=== PATIENT | female | born 1975 | race Caucasian/White ===

== ENCOUNTER 2017-02-26 14:42 | Emergency (ER) | payer SELFPAY ==
[~2017-02-26] VITALS: Ht 170.2 cm; Wt 97.5 kg
[~2017-02-26 14:42] MED LIST: DOXY100C2 PO; HYDR1TAB PO; NAPR-243 PO; PRD20T PO
--- OUTSIDE RECORDS SUMMARY | 2017-02-26 14:49 | XMS REPORT ---
Author Author CECILIA LLANES [facility] eClinicalWorks Address Unknown Phone Unavailable Care Team Providers Care Cycle Counter Name Role Phone CECILIA LLANES CP Unavailable Allergies No Known Allergies Problems Problem Type Condition ICD-9 Code Onset Dates Condition Status Assessment Lumbago 724.2 Active Problem Decreased urination 788.5 Active Problem Increased mucus in stool 792.1 Active Problem Routine adult health maintenance V70.0 Active Assessment Decreased urination 788.5 Active Assessment Increased mucus in stool 792.1 Active Problem Lumbago 724.2 Active Assessment Routine adult health maintenance V70.0 Active Medications No Known Medications Procedures Procedure Coding System Code Date COMPREHEN METABOLIC PANEL CPT-4 56669 Nov 24, 2014 ASSAY THYROID STIM HORMONE CPT-4 51266 Nov 24, 2014 COMPLETE CBC W/AUTO DIFF WBC CPT-4 81422 Nov 24, 2014 VENIPUNCT, ROUTINE* CPT-4 72226 Nov 24, 2014 URINALYSIS, AUTO, W/O SCOPE CPT-4 91849 Nov 24, 2014 FECES CULTURE, BACTERIA CPT-4 74157 Nov 24, 2014 Results Name Result Date Reference Range Unit Abnormality Flag UA W/CULTURE IF INDICATED (IN HOUSE) CULTURE, STOOL Summary Purpose eClinicalWorks Submission
--- OUTSIDE RECORDS SUMMARY | 2017-02-26 14:49 | XMS REPORT ---
Author Author CECILIA LLANES Organization eClinicalWorks Address Unknown Phone Unavailable Care Team Providers Care Auto Dismantler Name Role Phone CECILIA LLANES CP Unavailable Allergies No Known Allergies Problems Problem Type Condition ICD-9 Code Onset Dates Condition Status Problem Decreased urination 788.5 Active Problem Increased mucus in stool 792.1 Active Problem Routine adult health maintenance V70.0 Active Problem Lumbago 724.2 Active Medications Medication Code System Code Instructions Start Date End Date Status Dosage Diclofenac Sodium [facility] [address]-02 50 MG Orally Twice a day Nov 29, 2014 1 tablet Cyclobenzaprine HCl [facility] [address]-04 5 MG Orally at bedtime Nov 29, 2014 1 tablet Results No Known Results Summary Purpose eClinicalWorks Submission
--- NOTE | 2017-02-26 15:16 | ED Lower Extremity ---
General Chief Complaint: Lower Extremity Stated Complaint: PAIN IN BOTH LEGS,LEFT WORSE Nursing Triage Note: AMB TO ROOM REPORTS MISSED BOTTEM STEP AND TWISTED R ANKLE,AND HIT L CHIN ON STEP. SWELLING TO R ANKLE 3 DAYS AGO Nursing Sepsis Screen: No Definite Risk Source: patient Exam Limitations: no limitations History of Present Illness Time seen by provider: 15:15 Initial Comments Patient missed the last step on her basement stairs 3 days ago. She subsequently fell. She has persistent right ankle swelling and left ankle pain without swelling. She is ambulatory to room 8 Onset: other Severity: moderate Pain/Injury Location: bilateral ankle Method of Injury: fell Modifying Factors: Worse With Movement Allergies and Home Medications Allergies Coded Allergies: Penicillins (Unverified Allergy, Severe, THROAT CLOSES UP, 08/06/10) Home Medications Hydrocodone/Acetaminophen 1 Each Tablet, 1 EACH PO Q4H PRN for PAIN-SEVERE TO BREAKTHROUGH, #30 Prescribed by: WILLIAM VITAL on 02/26/17 1536 Naproxen 500 Mg Tablet, 1 EACH PO BID PRN, #30 Prescribed by: MUNA CLEMENS on 03/14/12 1654 Constitutional: see HPI EENTM: see HPI Respiratory: no symptoms reported Cardiovascular: no symptoms reported Genitourinary: no symptoms reported Musculoskeletal: see HPI Skin: no symptoms reported Psychiatric/Neurological: No Symptoms Reported Past Ceeflod-Rizece-Qlpqow Hx Patient Social History Alcohol Use: Denies Use Recreational Drug Use: No Smoking Status: Current Everyday Smoker Recent Foreign Travel: No Contact w/Someone Who Travel: No Recent Infectious Disease Expo: No Surgeries History of Surgeries: Yes Surgeries: Tubal Ligation Respiratory History of Respiratory Disorde: No Cardiovascular History of Cardiac Disorders: No Neurological History of Neurological Disord: No Musculoskeletal History of Musculoskeletal Dis: No Psychosocial History of Psychiatric Problem: No Integumentary History of Skin or Integumenta: No Physical Exam Vital Signs Vital Sign - Last 12Hours 02/26/17 14:48 Temp 98.0 Pulse 100 Resp 18 B/P (MAP) 142/89 Pulse Ox 98 O2 Delivery Room Air Capillary Refill : Less Than 3 Seconds General Appearance: WD/WN, no apparent distress HEENT: PERRL/EOMI, normal ENT inspection Neck: non-tender, full range of motion Respiratory: normal breath sounds, no respiratory distress, no accessory muscle use Hips: bilateral hip non-tender, bilateral hip normal inspection, bilateral hip normal range of motion Legs: bilateral leg non-tender, bilateral leg normal inspection, bilateral leg normal range of motion Knees: bilateral knee non-tender, bilateral knee normal inspection, bilateral knee normal range of motion Ankles: bilateral ankle limited range of motion, right ankle swelling Feet: bilateral foot non-tender, bilateral foot normal inspection, bilateral foot normal range of motion Neurologic/Psychiatric: alert, normal mood/affect, oriented x 3 Skin: normal color, warm/dry Progress/Results/Core Measures Results/Orders My Orders Orders - WILLIAM VITAL APRN Tibia/Fibula, Left, 2 Views (02/26/17 15:10) Ankle, Right, 3 Views (02/26/17 15:10) Vital Signs/I&O Vital Sign - Last 12Hours 02/26/17 14:48 Temp 98.0 Pulse 100 Resp 18 B/P (MAP) 142/89 Pulse Ox 98 O2 Delivery Room Air Blood Pressure Mean: 106 Departure Communication (Admissions) Progress Notes 1557-patient placed in a posterior short leg splint, crutches. Impression Impression: Primary Impression: Left fibular fracture Additional Impression: Right ankle sprain Disposition: HOME, SELF-CARE Condition: Stable Departure-Patient Inst. Decision time for Depature: 15:34 Referrals: [facility] (PCP) Primary Care Physician HUMBERTO WETZEL (Family) Primary Care Physician ZULLY SANCHEZ MD,MAGALYS PAEZ,AKUA HUERTA,CHRISSY ABDI,DONAVAN ABDI,SU Castillo MD Patient Instructions: Ankle Fracture (DC) Add. Discharge Instructions: 1. Wear the splint at all times until you follow up with orthopedics 2. Keep both ankles elevated as much as possible to help with swelling and pain 3. Pain medication as directed 4. All discharge instructions reviewed with patient and/or family. Voiced understanding. Scripts Hydrocodone/Acetaminophen (Spangle 5-325 Tablet) 1 Each Tablet 1 EACH PO Q4H Y for PAIN-SEVERE TO BREAKTHROUGH, #30 TAB Prov: WILLIAM VITAL APRN 02/26/17 WILLIAM VITAL APRN Feb 26, 2017 15:16
[2017-02-26] MEDS ORDERED: HYDR-757 PO (15:36)
--- NOTE | 2017-02-26 15:39 | Diagnostic Imaging Report ---
INDICATION: Ankle pain status post injury. COMPARISON: None. FINDINGS: Three radiographic views of the right ankle were obtained. There is moderate soft tissue swelling. Underlying bony structures however appear to be intact. There is no radiographic evidence of acute fracture or dislocation. IMPRESSION: 1. Moderate soft tissue swelling of the right ankle, but no radiographic evidence of acute fracture or dislocation. Dictated by: Dictated on workstation # [id number]
--- NOTE | 2017-02-26 15:47 | Diagnostic Imaging Report ---
INDICATION: Pain status post injury. COMPARISON: 08/06/2010. FINDINGS: Four radiographic views of the left tibia and fibula were obtained and show nondisplaced acute oblique oriented fracture of the distal fibula. Tibia appears to be intact. Included portions of the left ankle and knee joint are unremarkable. No unexpected radiopaque foreign bodies are seen. IMPRESSION: 1. Acute fracture of the distal left fibula as described above. Dictated by: Dictated on workstation # [id number]
[2017-02-26 16:03] VITALS: BP 142/89
== END 2017-02-26 16:02 | disposition home or self-care (01) ==
LOC: EDUNIT# 14:42 → ER 14:45
DX: S82.832A Other fracture of upper and lower end of left fibula, initial encounter for closed fracture (principal); S93.401A Sprain of unspecified ligament of right ankle, initial encounter; F17.200 Nicotine dependence, unspecified, uncomplicated; Z98.51 Tubal ligation status; W10.9XXA Fall (on) (from) unspecified stairs and steps, initial encounter; W22.09XA Striking against other stationary object, initial encounter
CPT/HCPCS: 29515; 73590; 73610

== ENCOUNTER 2017-03-06 11:58 | Emergency (ER) | payer SELFPAY ==
[~2017-03-06] VITALS: Ht 165.1 cm; Wt 113.4 kg
[~2017-03-06 11:58] MED LIST changes: +HYDR-757 PO
--- NOTE | 2017-03-06 12:45 | ED General ---
General Stated Complaint: LT WOODS BROKEN BOOT FALLEN APART-STILL HURTING Source of Information: Patient Exam Limitations: No Limitations History of Present Illness Time Seen by Provider: 12:43 Initial Comments To ER with reports of a distal left fibular fracture which I saw her for recently. She was given a step light walking boot. She states that her walking boot has "disintegrated" and she cannot see Dr. Hawkins until March 08 and she needs a replacement boot. No other symptoms. Timing/Duration: 2-3 Days Severity: Moderate Allergies and Home Medications Allergies Coded Allergies: Penicillins (Unverified Allergy, Severe, THROAT CLOSES UP, 08/06/10) Home Medications Hydrocodone/Acetaminophen 1 Each Tablet, 1 EACH PO Q4H PRN for PAIN-SEVERE TO BREAKTHROUGH, #30 Prescribed by: WILLIAM VITAL on 02/26/17 1536 Naproxen 500 Mg Tablet, 1 EACH PO BID PRN, #30 Prescribed by: MUNA CLEMENS on 03/14/12 1654 Constitutional: see HPI EENTM: see HPI Respiratory: no symptoms reported Cardiovascular: no symptoms reported Genitourinary: no symptoms reported Musculoskeletal: see HPI Skin: no symptoms reported Psychiatric/Neurological: No Symptoms Reported Hematologic/Lymphatic: No Symptoms Reported Past Mwyyjfr-Puyquv-Gqlaze Hx Patient Social History Recent Foreign Travel: No Contact w/Someone Who Travel: No Surgeries History of Surgeries: Yes Surgeries: Tubal Ligation Respiratory History of Respiratory Disorde: No Cardiovascular History of Cardiac Disorders: No Neurological History of Neurological Disord: No Musculoskeletal History of Musculoskeletal Dis: No Psychosocial History of Psychiatric Problem: No Integumentary History of Skin or Integumenta: No Physical Exam Vital Signs Capillary Refill : General Appearance: No Apparent Distress, WD/WN Eyes: Bilateral Eye Normal Inspection, Bilateral Eye PERRL, Bilateral Eye EOMI HEENT: PERRL/EOMI, TMs Normal Neck: Full Range of Motion, Normal Inspection Respiratory: No Accessory Muscle Use, No Respiratory Distress Cardiovascular: Regular Rate, Rhythm, Normal Peripheral Pulses Gastrointestinal: Non Tender, Soft Extremity: Normal Capillary Refill, Normal Inspection Neurologic/Psychiatric: Alert, Oriented x3, No Motor/Sensory Deficits Skin: Normal Color, Warm/Dry Comments Some persistent swelling around the left ankle. Bruising is minimal. No erythema. She is ambulatory to room 9 without use of assistive device. I will handwrite a prescription for a stepladder walking boot to be filled at [facility]. Progress/Results/Core Measures Suspected Sepsis SIRS Temperature: Pulse: Respiratory Rate: Blood Pressure / Mean: Results/Orders Vital Signs/I&O Capillary Refill : Departure Impression Impression: Primary Impression: encounter for replacement of walking boot Disposition: HOME, SELF-CARE Condition: Stable Departure-Patient Inst. Decision time for Depature: 12:45 Referrals: [facility] (PCP) Primary Care Physician HUMBERTO WETZEL (Family) Primary Care Physician Patient Instructions: NO INSTRUCTIONS GIVEN Add. Discharge Instructions: 1. Follow-up with Dr. Hawkins as scheduled 2. Return to ER for any concerns WILLIAM VITAL APRN Mar 06, 2017 12:45
[2017-03-06 12:48] VITALS: BP 135/84
== END 2017-03-06 12:48 | disposition home or self-care (01) ==
LOC: EDUNIT# 11:58 → ER 12:01
DX: S82.832D Other fracture of upper and lower end of left fibula, subsequent encounter for closed fracture with routine healing (principal); Z98.51 Tubal ligation status; X58.XXXD Exposure to other specified factors, subsequent encounter
CPT/HCPCS: 99281

== ENCOUNTER 2018-12-08 22:57 | Emergency (ER) | payer SELFPAY ==
[~2018-12-08] VITALS: Ht 170.2 cm; Wt 104.3 kg
[~2018-12-08 22:57] MED LIST changes: +HYDR-4226 PO; -HYDR-757 PO
--- NOTE | 2018-12-08 23:12 | NUR ---
PT TEMP 100.1 TYMPANICALLY.
[2018-12-09] MEDS ORDERED: ACHD5005 PO (00:26)
--- NOTE | 2018-12-09 00:27 | ED Fall/Injury ---
General Chief Complaint: Upper Extremity Stated Complaint: R SHOULDER PAIN Nursing Triage Note: AMBULATORY TO ED ROOM 7 AFTER TRANSPORTED VIA [facility]. PT WAS IN ROUTINE TRAFFIC STOP AND STATED SHE NEEDED AN AMBULANCE R/T RIGHT SHOULDER PAIN AFTER FALLING YESTERDAY EARLY AFTERNOON. STATES SHE WAS UNABLE TO AFFORD GOING TO THE [facility] WALK IN [facility]INIC. DID TAKE ALEVE PM LAST NOC. Source: patient Exam Limitations: no limitations History of Present Illness Date Seen by Provider: Dec 08, 2018 Time Seen by Provider: 22:53 Initial Comments This 43-year-old woman presents to the emergency room with right shoulder pain after having a fall yesterday. She tripped and landed on her right hand and shoulder. She now has right shoulder pain and significant decrease in range of motion. She was driving herself to the hospital when she was pulled over by law enforcement. She does not have a license and was therefore taken to the emergency room by EMS under the supervision of law-enforcement. She has taken Aleve PM but still has significant pain. She states she presents to the ER bec ause she could not afford to go to the [facility] walk-in clinic. Allergies and Home Medications Allergies Coded Allergies: Penicillins (Unverified Allergy, Severe, THROAT CLOSES UP, 08/06/10) Home Medications Hydrocodone Bit/Acetaminophen 1 Tab Tab, 1 EACH PO Q4-6HR PRN for PAIN-MODERATE Prescribed by: GABRIELA VIRAMONTES on 12/09/18 0026 Hydrocodone/Acetaminophen 1 Each Tablet, 1 EACH PO Q4H PRN for PAIN-SEVERE TO BREAKTHROUGH Prescribed by: WILLIAM VITAL on 02/26/17 1536 Naproxen 500 Mg Tablet, 1 EACH PO BID PRN Prescribed by: MUNA CLEMENS on 03/14/12 1654 Patient Home Medication List Home Medication List Reviewed: Yes Review of Systems Review of Systems Constitutional: no symptoms reported Eyes: No Symptoms Reported Ears, Nose, Mouth, Throat: no symptoms reported Respiratory: no symptoms reported Cardiovascular: no symptoms reported Gastrointestinal: no symptoms reported Genitourinary: no symptoms reported : No Musculoskeletal: see HPI Skin: no symptoms reported Psychiatric/Neurological: No Symptoms Reported Past Wkamism-Mirsuo-Cshioi Hx Past Med/Social Hx: Reviewed Nursing Past Med/Soc Hx Patient Social History Alcohol Use: Denies Use Recreational Drug Use: No Smoking Status: Current Everyday Smoker Recent Foreign Travel: No Contact w/Someone Who Travel: No Recent Infectious Disease Expo: No Recent Hopitalizations: No Physical Abuse: No Sexual Abuse: No Mistreated: No Fear: No Immunizations Up To Date Tetanus Booster (TDap): Unknown Seasonal Allergies Seasonal Allergies: No Past Medical History Surgeries: Yes Tubal Ligation Respiratory: Yes COPD Cardiac: No Neurological: No TEAM DRIVER History: Tubal Ligation Genitourinary: No Gastrointestinal: No Musculoskeletal: No HEENT: No Cancer: No Psychosocial: No Integumentary: No Blood Disorders: No Physical Exam Vital Signs Vital Signs - First Documented 12/08/18 12/09/18 22:59 00:34 Temp 97.0 Pulse 106 Resp 18 B/P (MAP) 146/103 (117) Pulse Ox 100 Capillary Refill : Less Than 3 Seconds Height, Weight, BMI Height: 5'7.00" Weight: 230lbs. oz. 104.568238sj; 30.99 BMI Method:Stated General Appearance: WD/WN, mild distress HEENT: PERRL/EOMI, normal ENT inspection Neck: non-tender, normal inspection Cardiovascular: regular rate, rhythm, no edema, no murmur Respiratory: no respiratory distress, no accessory muscle use, wheezing Gastrointestinal: non tender, soft Back: normal inspection Extremities: normal inspection, other (Passive and active range of motion limited in the right shoulder. Distal arm, elbow, forearm, wrist, and hand are all normal. Radial pulse intact. Sensation and capillary refill intact. 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, no motor/sensory deficits, alert, normal mood/affect, oriented x 3 Skin: normal color, warm/dry Shanda Coma Score Best Eye Response: (4) Open Spontaneously Best Verbal Response: (5) Oriented Best Motor Response: (6) Obeys Commands Tell Total: 15 Progress/Results/Core Measures Results/Orders My Orders Orders - GABRIELA HOPKINS MD Shoulder, Right, 3 Views (12/08/18 23:06) Hydrocodone/Apap 5/325 Tablet (Lortab 5 (12/09/18 00:30) Vital Signs/I&O 12/08/18 12/09/18 22:59 00:34 Temp 97.0 97.0 Pulse 106 99 Resp 18 18 B/P (MAP) 146/103 (117) 135/99 (111) Pulse Ox 100 Blood Pressure Mean: 117 Progress Progress Note : Progress Note Shoulder fracture was identified by x-ray. Sling was used for immobilization. Hydrocodone was given for pain. Patient was discharged into the custody of law- enforcement. Diagnostic Imaging Diagonstic Imaging: Xray Plain Films/CT/US/NM/MRI: other (Right shoulder) Comments NAME: [facility] REC#: [id number] PT STATUS: DEP ER : 1975 PHYSICIAN: GABRIELA HOPKINS MD ADMIT DATE: 12/08/18/ER Signed Date of Exam: 12/08/18 SHOULDER, RIGHT, 3 VIEWS PATIENT HISTORY: Fall with pain in the right shoulder. TECHNIQUE: 3 views of the right shoulder COMPARISON: None FINDINGS: There is a nondisplaced fracture through the greater tuberosity of the right humeral head. The glenohumeral and acromioclavicular alignment appear normal. There is mild degenerative change at the acromioclavicular joint. IMPRESSION: 1. Nondisplaced fracture through the greater tuberosity of the right humeral head. Dictated by: Dictated on workstation # [id number] Dict: 12/09/18 0609 Trans: 12/09/18 1055 Interpreted by: DEISY AVELAR MD Electronically signed by: DEISY AVELAR MD 12/09/18 1055 Departure Impression Primary Impression: Right humeral fracture Qualified Codes: S42.294A - Other nondisplaced fracture of upper end of right humerus, initial encounter for closed fracture Additional Impression: Fall on same level as cause of accidental injury Disposition: 21 DIS/[address]/LAW ENFORCE Condition: Improved Departure-Patient Inst. Decision time for Depature: 00:25 Referrals: [facility] (PCP) Primary Care Physician HUMBERTO WETZEL (Family) Primary Care Physician KATHY CARVER MD Patient Instructions: Shoulder Fracture, How to Use a Shoulder Sling Add. Discharge Instructions: Use hydrocodone as prescribed for pain. Follow-up with Dr. Carver or the orthopedic provider of your choice as soon as possible. Keep your arm in the sling is much as possible. Apply ice in 20 minute intervals as needed to help with pain and swelling. Return to care if you have worsening symptoms of any kind. All discharge instructions reviewed with patient and/or family. Voiced understanding. Scripts Hydrocodone Bit/Acetaminophen (Hydrocodone/Acetaminophen 5/325mg Tablet) 1 Tab Tab 1 EACH PO Q4-6HR PRN for PAIN-MODERATE MDD 10, #20 TAB Prov: GABRIELA HOPKINS MD 12/09/18 Copy Copies To 1: KATHY CARVER MD, JOSHUA T MD Dec 09, 2018 00:27
[2018-12-09] MEDS ORDERED: HYDROcodone/APAP 5 MG/325 MG (LORTAB) TAB PO ONE (00:30)
[2018-12-09 00:34] VITALS: BP 135/99
--- NOTE | 2018-12-09 06:25 | Diagnostic Imaging Report ---
PATIENT HISTORY: Fall with pain in the right shoulder. TECHNIQUE: 3 views of the right shoulder COMPARISON: None FINDINGS: There is a nondisplaced fracture through the greater tuberosity of the right humeral head. The glenohumeral and acromioclavicular alignment appear normal. There is mild degenerative change at the acromioclavicular joint. IMPRESSION: 1. Nondisplaced fracture through the greater tuberosity of the right humeral head. Dictated by: Dictated on workstation # [id number]
== END 2018-12-09 00:34 ==
LOC: EDUNIT# 22:57 → ER 22:59
DX: S42.254A Nondisplaced fracture of greater tuberosity of right humerus, initial encounter for closed fracture (principal); J44.9 Chronic obstructive pulmonary disease, unspecified; R40.2142 Coma scale, eyes open, spontaneous, at arrival to emergency department; R40.2252 Coma scale, best verbal response, oriented, at arrival to emergency department; R40.2362 Coma scale, best motor response, obeys commands, at arrival to emergency department; F17.200 Nicotine dependence, unspecified, uncomplicated; Z98.51 Tubal ligation status; Z88.0 Allergy status to penicillin; W01.0XXA Fall on same level from slipping, tripping and stumbling without subsequent striking against object, initial encounter
CPT/HCPCS: 73030

== ENCOUNTER → 2018-12-30 | Outpatient (CLI) | payer SELFPAY ==
[~2018-12-30] MED LIST changes: +ACHD5005 PO
--- NOTE | 2018-12-30 14:10 | Diagnostic Imaging Report ---
INDICATION: Shoulder injury, followup. TIME OF EXAM: 1:14 PM COMPARISON: Correlation is made with prior radiographs from 12/08/2018. FINDINGS: Glenohumeral and acromioclavicular alignment is maintained. Fracture of the greater tuberosity is again seen. There is some blurring of the fracture lines consistent with some healing although fracture lines do remain partly visible. Alignment is anatomic. IMPRESSION: Healing greater tuberosity fracture of the proximal right humerus. Fracture lines do remain partly visible however. Dictated by: Dictated on workstation # [id number]
== END ==
LOC: RAD FS 13:23
PROVIDERS: ATTEND Nurse Practitioner
DX: S42.251D Displaced fracture of greater tuberosity of right humerus, subsequent encounter for fracture with routine healing (principal); X58.XXXD Exposure to other specified factors, subsequent encounter
CPT/HCPCS: 73030

== ENCOUNTER 2021-10-18 12:55 | Emergency (ER) | payer SELFPAY ==
[~2021-10-18] VITALS: Ht 170 cm; Wt 89.0 kg
[2021-10-18 13:18] VITALS: BP 123/78
== END 2021-10-18 14:44 | disposition left against medical advice (07) ==
LOC: EDUNIT# 12:55 → ER 12:57
DX: T63.301A Toxic effect of unspecified spider venom, accidental (unintentional), initial encounter (principal); Z28.310 Unvaccinated for COVID-19
CPT/HCPCS: 99281